=== PATIENT | female | born 1940 | race Caucasian/White ===

== ENCOUNTER → 2017-01-23 | Outpatient (REF) | payer MEDICARE ==
[~2017-01-23] MED LIST: ALBU17IN INH; ALBU83IN INH; ALLE180T33 PO; CALC600T60 PO; CHOL4POW4 PO; CINN500C9 PO; FISH1000 PO; IPRASOL4 NEB; LEVA750T7 PO; LISI20TA PO; MONT10TA2 PO; PRED10TA PO; SIMV10TA2 PO; SYMB16INH INH; VERA1TAB11 PO; VITMTA PO
== END ==
LOC: M LAB REF 13:06
PROVIDERS: ATTEND Physician Assistant Medical
DX: R11.10 Vomiting, unspecified (principal)

== ENCOUNTER → 2017-06-21 | Outpatient (CLI) | payer MEDICARE | LOC: M SLEEP 16:00 | DX: G47.33 Obstructive sleep apnea (adult) (pediatric) (principal); G47.61 Periodic limb movement disorder | CPT/HCPCS: 95810 ==

== ENCOUNTER → 2017-07-16 | Outpatient (CLI) | payer MEDICARE | LOC: M SLEEP 19:34 | DX: G47.33 Obstructive sleep apnea (adult) (pediatric) (principal) | CPT/HCPCS: 95811 ==

== ENCOUNTER → 2018-08-12 | Outpatient (CLI) | payer MEDICARE ==
[~2018-08-12] MED LIST changes: +IPRA0.00 NEB; -IPRASOL4 NEB; +PRED-351 PO; -PRED10TA PO; +VERA180T3 PO; -VERA1TAB11 PO
--- NOTE | 2018-08-12 15:08 | REPMRS ---
Patient History The patient states she has not had a clinical breast exam in over a year. Family history of breast cancer at age 60 in sister. No Hormone Replacement Therapy Digital Woman Screen Mammo: August 12, 2018 - Exam #: [id number] Bilateral CC and MLO view(s) were taken. Technologist: Nayana Watst, Technologist Prior study comparison: 2016, bilateral digital mammo screening bilat, performed at [email or web address]. May 19, 2014, bilateral digital woman screen mammo, performed at [facility]. March 24, 2012, bilateral digital woman screen mammo, performed at [facility]. FINDINGS: There are scattered fibroglandular densities. There has been no change in the appearance of the mammogram from the prior studies. There is a mild amount of scattered fibroglandular density which is fairly symmetric. There is no interval development of dominant mass, architectural distortion, or clustered microcalcification suggestive of malignancy. 3-D tomosynthesis shows no additional findings. Assessment: BI-RADS/ACR category 1 mammogram. Negative Mammogram. Recommendation Routine screening mammogram of both breasts in 1 year (for women over age 40). This patient's Lifetime Breast Cancer RIsk is estimated at 4.0 %. This mammogram was interpreted with the aid of an FDA-approved computer-aided dectection system. Electronically Signed By: Gelacio Garcia MD 08/12/18 [id number]
== END ==
LOC: M WHC 12:58
PROVIDERS: ATTEND Internal Medicine
DX: Z12.31 Encounter for screening mammogram for malignant neoplasm of breast (principal)

== ENCOUNTER → 2018-09-25 | Outpatient (CLI) | payer MEDICARE ==
--- NOTE | 2018-09-25 14:26 | REP ---
Clinical: COPD. Technique: PA and lateral. Comparison: 09/03/2016. Findings: Mediastinum and cardiac silhouette are stable. Lung catalan demonstrate chronic-appearing interstitial changes primarily involving the bilateral bases. No obvious focal consolidation, effusion, or pneumothorax. Skeletal structures intact. Impression: Stable chronic changes consistent with history of COPD. No focal consolidation. Electronically Signed by Jack Veliz MD 09/25/2018 02:18 P
== END ==
LOC: M SMT 13:40
PROVIDERS: ATTEND Internal Medicine Pulmonary Disease
DX: J44.9 Chronic obstructive pulmonary disease, unspecified (principal)

== ENCOUNTER → 2019-05-05 | Outpatient (REF) | payer MEDICARE ==
[~2019-05-05] MED LIST changes: -LISI20TA PO; +LISI20TA19 PO; -SIMV10TA2 PO; +SIMV10TA21 PO
== END ==
LOC: M LAB REF 12:56
PROVIDERS: ATTEND Internal Medicine Pulmonary Disease
DX: J44.9 Chronic obstructive pulmonary disease, unspecified (principal)

== ENCOUNTER 2020-10-02 11:34 | Emergency (ER) | payer MEDICARE ==
[~2020-10-02] VITALS: Ht 160 cm; Wt 81.8 kg
[~2020-10-02 11:34] MED LIST changes: -LISI20TA19 PO; +LISI20TA35 PO; +MONT10TA10 PO; -MONT10TA2 PO
[2020-10-02 12:04] LABS: VENOUS BASE EXCESS -0.1 (-2.0-2.0); VENOUS HCO3 23.2 MEQ/L (23.0-27.0); VENOUS O2 SATURATION 98.7 % (60.0-80.0); VENOUS PARTIAL PRESSURE CO2 33.4 mmHg (38.0-50.0); VENOUS PARTIAL PRESSURE O2 148.7 mmHg (30.0-50.0); VENOUS PH 7.459 UNITS (7.330-7.430); VENOUS STANDARD HCO3 24.5 MEQ/L; VENOUS TOTAL CO2 24.2 MEQ/L (24.0-28.0)
[2020-10-02 12:11] LABS: BASO # 0.1 10^3/uL (0.0-0.2); BASO % 0.5 % (0.0-1.0); EOS # 0.1 10^3/uL (0.0-0.5); EOS % 1.1 % (0.0-3.0); HEMATOCRIT 36.8 % (36.0-47.0); LYMPH # 1.2 10^3/uL (1.5-5.0); LYMPH % 10.8 % (24.0-44.0); MEAN CORPUSCULAR HEMOGLOBIN 31.5 pg (27.0-33.0); MEAN CORPUSCULAR HGB CONC 32.6 g/dl (32.0-36.5); MEAN CORPUSCULAR VOLUME 96.6 fl (80.0-96.0); MONO # 1.2 10^3/uL (0.0-0.8); MONO % 11.1 % (2.0-8.0); NEUTROPHILS # 8.2 10^3/uL (1.5-8.5); PLATELET COUNT, AUTOMATED 147 10^3/uL (150-450); RED BLOOD COUNT 3.81 10^6/uL (4.00-5.40); WHITE BLOOD COUNT 10.8 10^3/uL (4.0-10.0)
--- NOTE | 2020-10-02 12:19 | REP ---
INDICATION: DYSPNEA/COUGH COMPARISON: None. TECHNIQUE: Portable AP view of the chest FINDINGS: The mediastinum and cardiac silhouette are stable and within normal limits for portable technique. The lung catalan demonstrate chronic appearing changes. No obvious focal consolidation, effusion, or pneumothorax. Skeletal structures are intact. IMPRESSION: Chronic appearing changes. No definite focal consolidation or effusion. <Electronically signed by Jack Veliz > 10/02/20 [id number]
[2020-10-02] MEDS: COMBIVENT RESPIMAT 100-20MCG INHALER 4GM INH SCH ×3 (12:40→13:19)
[2020-10-02 12:47] LABS: ALBUMIN 3.8 GM/DL (3.2-5.2); ALT/SGPT 21 U/L (12-78); BILIRUBIN,DIRECT 0.3 MG/DL (0.0-0.2); BILIRUBIN,TOTAL 0.8 MG/DL (0.2-1.0); BLOOD UREA NITROGEN 13 MG/DL (7-18); CARBON DIOXIDE LEVEL 26 MEQ/L (21-32); CHLORIDE LEVEL 107 MEQ/L (98-107); CK-MB VALUE MASS 1.3 NG/ML (<3.6); CPK CREATINE PHOSPHOKINASE 116 U/L (26-192); CREATININE FOR GFR 0.98 MG/DL (0.55-1.30); GLOMERULAR FILTRATION RATE 58.3 (>39); GLUCOSE, FASTING 110 MG/DL (70-100); MB/CK RELATIVE INDEX 1.12 (< OR =4); NT-PRO BNP 174 PG/ML (<450); POTASSIUM SERUM 3.8 MEQ/L (3.5-5.1); SODIUM LEVEL 141 MEQ/L (136-145); THYROXINE (T4) 9.6 UG/DL (4.5-12.0); TOTAL PROTEIN 7.1 GM/DL (6.4-8.2); TROPONIN I < 0.02 NG/ML (< 0.10)
[2020-10-02] MEDS ORDERED: ADV250INH INH (13:05)
[2020-10-02] MEDS ORDERED: TERA5CAP3 PO (13:05)
[2020-10-02] MEDS ORDERED: ISOVUE-370 76% 100ML VIAL As Ordered ONE (14:40)
[2020-10-02 15:20] VITALS: O2SAT 97
--- NOTE | 2020-10-02 15:47 | REP ---
INDICATION: sob ro pe COMPARISON: 05/24/2015 TECHNIQUE: Axial contrast enhanced images from the thoracic inlet to the upper abdomen using pulmonary embolus technique with multiplanar re-formations. 75 ml Isovue 370 intravenous contrast material administered without complication. This CT examination was performed using the following dose reduction techniques: Automated exposure control, adjustment of mA and/or kv according to the patient's size, and use of iterative reconstruction technique. FINDINGS: Satisfactory enhancement of the pulmonary vasculature is achieved and no filling defects are identified to suggest pulmonary embolus. Further evaluation of the mediastinum demonstrates atherosclerotic changes to the thoracic aorta and coronary arteries without aortic aneurysm/dissection, cardiomegaly or pericardial effusion. The bibasilar atelectasis and small areas of consolidation are appreciated along with mild presumed reactive bilateral hilar adenopathy. No effusion. No pneumothorax. Calcified nodule consistent with granulomatous disease. Tracheobronchial tree is patent. Surrounding musculoskeletal structures demonstrate age-related degenerative changes. Limited upper abdomen demonstrates normal bilateral adrenal glands along with small hiatal hernia. IMPRESSION: No evidence for pulmonary embolus. Mild bibasilar atelectasis and small areas of consolidation with reactive hilar lymph nodes warrant follow-up to resolution. Evidence for prior granulomatous disease. Hiatal hernia. <Electronically signed by Jack Veliz > 10/02/20 [id number]
[2020-10-02] MEDS ORDERED: CEFD300C PO (16:14)
[2020-10-02] MEDS ORDERED: PRED20TA PO (16:14)
[2020-10-02] MEDS ORDERED: CEFDINIR 300 MG CAP (OMNICEF) PO ONE (16:15)
[2020-10-02 16:56] VITALS: BP 137/61
--- NOTE | 2020-10-02 19:33 | ECGEPIP ---
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
== END 2020-10-02 17:57 | disposition home or self-care (01) ==
LOC: M ED 11:34 → EDBD 11:34 → M ED 17:57
DX: J44.1 Chronic obstructive pulmonary disease with (acute) exacerbation (principal); J18.9 Pneumonia, unspecified organism; Z87.891 Personal history of nicotine dependence; K44.9 Diaphragmatic hernia without obstruction or gangrene; Z79.899 Other long term (current) drug therapy
CPT/HCPCS: 71045; 71275; 80047; 80048; 80076; 82550; 82553; 82803; 83605; 83880; 84436; 84443; 84484; 85025; 87040; 87798; 93005; 93041; 94640; 99285; Q9967

== ENCOUNTER 2021-01-31 14:33 | Emergency (ER) | payer MEDICARE ==
[~2021-01-31] VITALS: Ht 157.5 cm; Wt 83.8 kg
[~2021-01-31 14:33] MED LIST changes: +ADV250INH INH; +CEFD300C PO; +PRED20TA PO; +TERA5CAP3 PO; -VERA180T3 PO; +VERA180T50 PO
--- NOTE | 2021-01-31 15:34 | REP ---
INDICATION: FOOSH COMPARISON: None. TECHNIQUE: AP, lateral, bilateral oblique views left wrist. FINDINGS: There is an acute comminuted intra-articular Colles' fracture of the distal radius along with nondisplaced ulnar styloid fracture and overlying soft tissue swelling. Generalized osteopenia and degenerative changes throughout the wrist. IMPRESSION: Acute Colles' fracture of the distal radius and nondisplaced ulnar styloid fracture. <Electronically signed by Jack Veliz > 01/31/21 [id number]
[2021-01-31] MEDS ORDERED: LIDOCAINE 1% MDV 20ML VIAL SC ONE (18:40)
--- NOTE | 2021-01-31 19:25 | CR.PDOC ---
General Date of Consultation: Jan 31, 2021 Attending Physician: ELI RUTLEDGE MD Consultation REASON FOR CONSULTATION/CHIEF COMPLAINT: [Left distal radius fracture]. HISTORY OF PRESENT ILLNESS: [Patient was shopping today with his son. Trip and fall while getting into the truck. Fall on the outstretched hand left. Sudden onset pain and deformity. He was seen at [facility]. X-rays show Colles' fracture intra-articular left distal radius. Denies any elbow or shoulder pain.]. ALLERGIES: Please see below. HOME MEDICATIONS: Please see below. PAST MEDICAL HISTORY: Noncontributory PAST SURGICAL HISTORY: Noncontributory FAMILY HISTORY: Noncontributory SOCIAL HISTORY: Retired female non-smoker REVIEW OF SYSTEMS: 14 point review of systems negative except for the HPI above PHYSICAL EXAMINATION: VITAL SIGNS: Please see below. GENERAL APPEARANCE: [Alert and oriented. No acute distress]. HEENT: [Within normal limits]. RESPIRATORY: [Resting comfortably on room air]. CARDIOVASCULAR: [Denies any chest pain shortness of breath]. ABDOMEN: [Soft nontender]. EXTREMITIES: [Left distal radius Colles' dinner fork deformity]. NEUROLOGICAL: [Sensory intact to light touch, good capillary refill, good pulses distally]. PSYCHIATRIC: [Normal affect]. LABORATORY DATA: Please see below. ASSESSMENT/PLAN: 1. [Left distal radius fracture for close reduction. Local anesthetic lidocaine 4 cc using sterile technique. Closed reduction performed with manual reduction and finger traps. Plaster Aga cast applied.]. 2. [Postreduction x-rays]. 3. Follow-up in 1 week [facility] orthopedics. Vital Signs/I&O Vital Signs Date Time Temp Pulse Resp B/P (MAP) Pulse Ox O2 Delivery O2 Flow Rate FiO2 01/31/21 14:34 98.0 94 18 189/75 (113) 94 Room Air Allergies Coded Allergies: No Known Allergies (Verified , 01/07/04) Home Medications Scheduled Calcium Carbonate (Calcium) 600 Mg Tab, 1,200 MG PO DAILY, (Reported) Cefdinir (Cefdinir) 300 Mg Capsule, 300 MG PO BID for 7 Days, #14 Cinnamon Bark (Cinnamon) 500 Mg Cap, 1,000 MG PO DAILY, (Reported) Fexofenadine HCl (Cathy Allergy) 180 Mg Tab, 180 MG PO QHS, (Reported) Montelukast Sodium (Montelukast Sodium) 10 Mg Tab, 10 MG PO QHS, (Reported) Multivitamins (Thera M Plus Tablet) 1 Tab Tab, 1 TAB PO DAILY, (Reported) [place]-3 Fatty Acids/Fish Oil (Fish Oil 1,000 mg Capsule) 1,000 Mg Cap, 1,000 MG PO DAILY, (Reported) Prednisone (Prednisone) 20 Mg Tablet, 20 MG PO ASDIRECTED, #20 3 po day 1-3; 2 po day 4-7; 1 po day 8-10 Salmeterol/Fluticasone (Advair 250-50 Diskus) 1 Each Blst.w.dev, 1 PUFF INH BID, (Reported) Simvastatin (Simvastatin) 10 Mg Tab, 10 MG PO QHS, (Reported) Terazosin HCl (Terazosin HCl) 5 Mg Capsule, 1 TAB PO QHS, (Reported) Verapamil HCl (Verapamil ER) 180 Mg Tab, 180 MG PO DAILY, (Reported) Scheduled PRN Albuterol Sulfate (Ventolin Hfa) 200 Puff/8 Gm Aers, 2 PUFF INH Q4H PRN for SHORTNESS OF BREATH, (Reported) Ipratropium/Albuterol Sulfate (Iprat-Albut 0.5-3(2.5) mg/3 ml) 1 Patrizia Patrizia, 1 PATRIZIA NEB Q4H PRN for SHORTNESS OF BREATH, (Reported) ELI RUTLEDGE MD Jan 31, 2021 19:25
--- NOTE | 2021-01-31 19:29 | REP ---
INDICATION: left DR fracture reduction and cast COMPARISON: 01/31/2021 at 3:10 p.m. TECHNIQUE: AP, lateral, bilateral oblique views left wrist. FINDINGS: Comminuted intra-articular fracture of the distal radius demonstrates satisfactory reduction. Further evaluation is limited by overlying cast material. IMPRESSION: Comminuted distal radial fracture. <Electronically signed by Jack Veliz > 01/31/211924
--- NOTE | 2021-01-31 19:29 | ROOPDOC ---
[facility] Report Of Operation Report of Operation DATE OF PROCEDURE: 01/31/21 PREPROCEDURE DIAGNOSES: [Left distal radius fracture Colles' intra-articular]. POSTPROCEDURE DIAGNOSES: [Same]. PROCEDURE PERFORMED: [Closed reduction with local anesthetic hematoma block. Manual pressure and finger traps. Low elbow cast]. SURGEON: [Nicola chang], DIRECTOR RETIREMENT: None , ANESTHESIA: [Local anesthetic. Hematoma block 4 cc lidocaine using sterile technique]. ESTIMATED BLOOD LOSS: Approximately mL. COMPLICATIONS: [None]. PROCEDURE NOTE: [Patient resting comfortably. Skin cleaned with alcohol. 4 cc lidocaine hematoma block dorsal aspect distal radius. No complication with this procedure Distal radius reduced with traction and dorsal pressure over the distal radius. Patient also placed into finger traps with traction and index finger. 10 pounds of weight applied above the elbow. Patient tolerated procedure well. Below elbow cast applied. Molding of the cast dorsally and volarly. Patient tolerated procedure very well.]. NICOLA RUTLEDGE MD Jan 31, 2021 19:29
[2021-01-31] MEDS ORDERED: ACETAMINOPHEN 325 MG TAB PO ONE (19:45)
[2021-01-31 20:07] VITALS: BP 166/74
== END 2021-01-31 20:08 | disposition home or self-care (01) ==
LOC: M ED 14:33
DX: S52.532A Colles' fracture of left radius, initial encounter for closed fracture (principal); S52.615A Nondisplaced fracture of left ulna styloid process, initial encounter for closed fracture; W01.119A Fall on same level from slipping, tripping and stumbling with subsequent striking against unspecified sharp object, initial encounter; Y92.9 Unspecified place or not applicable; Y93.9 Activity, unspecified; Y99.9 Unspecified external cause status; J44.9 Chronic obstructive pulmonary disease, unspecified; I10 Essential (primary) hypertension; G47.30 Sleep apnea, unspecified; Z79.899 Other long term (current) drug therapy

== ENCOUNTER → 2021-02-07 | Outpatient (CLI) | payer MEDICARE ==
--- NOTE | 2021-02-07 14:29 | REP ---
INDICATION: LT WRIST FX. COMPARISON: 01/31/2021 TECHNIQUE: Three views with cast in place. FINDINGS: There is no change from the prior exam. Once again, the previously described fractures are obscured by the overlying casting material but overall no significant changes appreciated. IMPRESSION: No significant change <Electronically signed by Jose Cleary > 02/07/21 [id number]
== END ==
LOC: M SOG 13:36
PROVIDERS: ATTEND Orthopaedic Surgery
DX: S52.532A Colles' fracture of left radius, initial encounter for closed fracture (principal); X58.XXXA Exposure to other specified factors, initial encounter; Y92.9 Unspecified place or not applicable; Y93.9 Activity, unspecified; Y99.9 Unspecified external cause status

== ENCOUNTER → 2021-02-14 | Outpatient (CLI) | payer MEDICARE ==
[~2021-02-14] MED LIST changes: +VERA180T42 PO; -VERA180T50 PO
--- NOTE | 2021-02-14 11:54 | REP ---
INDICATION: LT WRIST FX. COMPARISON: Multiple the latest 02/07/2021 also casted TECHNIQUE: Three views with cast in place FINDINGS: Previously described distal radial fracture does not appear to be significantly changed compared to the prior exam although once again, the osseous structures are obscured by the cast. IMPRESSION: No significant change as described above <Electronically signed by Jose Cleary > 02/14/21 [id number]
== END ==
LOC: M SOG 11:11
PROVIDERS: ATTEND Orthopaedic Surgery
DX: S52.532A Colles' fracture of left radius, initial encounter for closed fracture (principal); X58.XXXA Exposure to other specified factors, initial encounter; Y92.9 Unspecified place or not applicable; Y93.9 Activity, unspecified; Y99.9 Unspecified external cause status

== ENCOUNTER → 2021-03-01 | Outpatient (CLI) | payer MEDICARE ==
--- NOTE | 2021-03-01 13:47 | REP ---
INDICATION: LT WRIST FX. COMPARISON: 02/14/2021 the latest prior with cast in place TECHNIQUE: Three views FINDINGS: There is no significant change from the prior exam. Previously described fracture noted status quo. Once again, the osseous structures are obscured by the cast. IMPRESSION: No significant changes identified. <Electronically signed by Jose Cleary > 03/01/21 0154
== END ==
LOC: M SOG 10:08
PROVIDERS: ATTEND Orthopaedic Surgery
DX: S52.532D Colles' fracture of left radius, subsequent encounter for closed fracture with routine healing (principal); X58.XXXD Exposure to other specified factors, subsequent encounter; Y92.9 Unspecified place or not applicable; Y93.9 Activity, unspecified; Y99.9 Unspecified external cause status

== ENCOUNTER → 2021-03-17 | Outpatient (CLI) | payer MEDICARE ==
--- NOTE | 2021-03-17 12:32 | REP ---
INDICATION: EL. COMPARISON: 03/01/2021 TECHNIQUE: AP, lateral, oblique views of the left wrist FINDINGS: Stable comminuted fracture of the distal radial metaphysis along with ulnar styloid fracture demonstrates callus formation consistent with healing process. Underlying advanced stable diffuse and pancarpal arthritic degenerative changes. IMPRESSION: Healing distal radial fracture and ulnar styloid fracture. <Electronically signed by Jack Veliz > 03/17/21 1541
== END ==
LOC: M SOG 11:03
PROVIDERS: ATTEND Orthopaedic Surgery
DX: S52.532D Colles' fracture of left radius, subsequent encounter for closed fracture with routine healing (principal); X58.XXXD Exposure to other specified factors, subsequent encounter; Y92.9 Unspecified place or not applicable; Y99.9 Unspecified external cause status; Y93.9 Activity, unspecified; S52.612D Displaced fracture of left ulna styloid process, subsequent encounter for closed fracture with routine healing

== ENCOUNTER → 2023-11-25 | Outpatient (CLI) | payer MEDICARE ==
[~2023-11-25] MED LIST changes: +ALBU2.5V10 INH; -ALBU83IN INH; +CHOL4POW26 PO; -CHOL4POW4 PO; -MONT10TA10 PO; +MONT10TA97 PO
== END ==
LOC: M PLAIMG 13:59
PROVIDERS: ATTEND Internal Medicine Pulmonary Disease
DX: R05.9 Cough, unspecified (principal); R06.02 Shortness of breath; J98.4 Other disorders of lung

== ENCOUNTER → 2025-03-10 | Outpatient (CLI) | payer MEDICARE ==
[~2025-03-10] MED LIST changes: -ADV250INH INH; +ADVA1AER9 INH
== END ==
LOC: M PLAIMG 10:19
PROVIDERS: ATTEND Internal Medicine Pulmonary Disease
DX: R05.9 Cough, unspecified (principal); J44.9 Chronic obstructive pulmonary disease, unspecified